=== PATIENT | male | born 1980 ===

== ENCOUNTER 2018-12-16 17:38 | Emergency (ER) | payer OTHER, MEDICAID ==
[2018-12-16] MEDS ORDERED: TDAP Vaccine 0.5 mL Syr IM ONE (18:40)
--- NOTE | 2018-12-16 19:49 | ED PDOC ---
Arrival/HPI - General Chief Complaint: Finger,Hand,&Wrist Time Seen by Provider: 12/16/18 18:22 Historian: Patient - History of Present Illness Narrative History of Present Illness (Text): 12/16/18 19:46 38 year old male, with no past medical history, here for evaluation of left hand 2nd digit laceration that occurred this afternoon. Patient was at work and got his left hand caught in a piece of machinery causing a laceration to the tip of his left hand second digit. Bleeding was controlled at the time of injury with pressure. Patient presents to the emergency department because he is worried it'll be broken. Unknown last tetanus. Patient denies any laceration elsewhere, numbness, weakness, parasthesias, fevers, chills, headache, dizziness, chest pain, shortness of breath, dyspnea on exertion, cough, abdominal pain, nausea, vomiting, diarrhea, back pain, neck pain, or any other complaint. Time/Duration: 4-6 hours Symptom Onset: Gradual Symptom Course: Unchanged Activities at Onset: Light Context: Work Past Medical History - Provider Review Nursing Documentation Reviewed: Yes - Psychiatric Hx Psychophysiologic Disorder: No Hx Substance Use: No Family/Social History - Physician Review Nursing Documentation Reviewed: Yes Family/Social History: No Known Family HX Smoking Status: Never Smoked Hx Alcohol Use: No Hx Substance Use: No Allergies/Home Meds Allergies/Adverse Reactions: Allergies No Known Allergies Allergy (Verified 12/16/18 17:55) Review of Systems - Physician Review All systems were reviewed & negative as marked: Yes - Review of Systems Constitutional: Normal. absent: Fevers Eyes: Normal. absent: Vision Changes Respiratory: Normal. absent: SOB, Cough Cardiovascular: Normal. absent: Chest Pain Gastrointestinal: Normal. absent: Abdominal Pain, Diarrhea, Nausea, Vomiting Musculoskeletal: Arthralgias. absent: Back Pain, Neck Pain Skin: Laceration (left hand 2nd digit laceration) Neurological: Normal. absent: Headache, Dizziness Physical Exam Vital Signs Reviewed: Yes Vital Signs Temp Pulse Resp BP Pulse Ox 12/16/18 17:56 99.2 F 130 H 16 143/94 H 97 Temp Pulse Resp BP Pulse Ox 97.9 F 96 H 18 129/80 98 12/16/18 22:14 12/16/18 22:14 12/16/18 22:14 12/16/18 22:14 12/16/18 22:14 Temperature: Afebrile Blood Pressure: Hypertensive Pulse: Tachycardic Respiratory Rate: Normal Appearance: Positive for: Well-Appearing, Non-Toxic, Comfortable Pain Distress: None Mental Status: Positive for: Alert and Oriented X 3 - Systems Exam Head: Present: Atraumatic, Normocephalic Pupils: Present: PERRL Extroacular Muscles: Present: EOMI Conjunctiva: Present: Normal Mouth: Present: Moist Mucous Membranes Neck: Present: Normal Range of Motion. No: Paraspinal Tenderness Respiratory/Chest: Present: Clear to Auscultation, Good Air Exchange. No: Respiratory Distress, Accessory Muscle Use Cardiovascular: Present: Regular Rate and Rhythm, Normal S1, S2 Upper Extremity: Present: Normal ROM, NORMAL PULSES, Tenderness (over lac eration), Neurovascularly Intact, Capillary Refill < 2s, Deformity (tip of left hand 2nd digit partially avulsed), Other (1.5cm laceration proximal to the nail bed of the left hand 2nd digit. small amount of active bleeding. Skin intact to the volar aspect of the finger. ). No: Cyanosis, Edema, Temperature Abnormalties Lower Extremity: Present: Normal ROM Neurological: Present: GCS=15, CN II-XII Intact, Speech Normal, Motor Func Grossly Intact, Normal Sensory Function, Gait Normal Skin: Present: Warm, Dry, Normal Color. No: Rashes Psychiatric: Present: Alert, Oriented x 3, Normal Insight, Normal Concentration, Normal Affect, Normal Mood Medical Decision Making ED Course and Treatment: 12/16/18 19:51 Impression: 38 year old male, who presents to the emergency department complaining of laceration to the left 2nd digit. Plan: -- Tdap -- Tylenol -- Left hand X-ray -- Keflex -- Reassess and disposition Progress Notes: Xray shows comminuted fracture to distal phalanx of left hand 2nd digit. Spoke with Dr. Astudillo, who will come to ED to repair laceration. Procedure approved by nursing information systems coordinator Keisha and ED Director Dr. Reddy. Patient tolerated procedure well without complication. Hemostasis achieved. Splint applied, finger remained neurovascularly intact. Pt to followup in Dr. Astudillo's office on 12/22 for suture removal and followup. Dr. Astudillo recommends prescriptions for keflex, ibuprofen, and percocet. Wound care instructions discussed with patient. Full discussion translated by nurse to ensure patient understanding. Pt provided with proof of deposit by Dr. Astudillo. Pt verbalized understanding of discussion, will followup as instructed. Post-procedure XR shows improvement in bony alignment. Diagnostic testing results and plan of care discussed with patient. Strict instructions given regarding prescription use, importance of followup, and signs/symptoms to return to ER including fever, chills, signs of wound infection, or any other new/worsening symptoms. Pt verbalized understanding of discussion. Patient is A&Ox3, ambulating with steady gait, with vital signs stable for discharge. - RAD Interpretation Radiology Orders: 12/16/18 18:39 HAND LEFT 2ND DIGIT (FINGER) [RAD] Stat - Medication Orders Current Medication Orders: Discontinued Medications Acetaminophen (Tylenol 325mg Tab) 975 mg PO STAT STA Stop: 12/16/18 19:00 Last Admin: 12/16/18 19:36 Dose: 975 mg MAR Pain/Vitals Document 12/16/18 19:36 OCS (Rec: 12/16/18 19:45 OCS [id number]) Pain Reassessment Is This A Pain ReAssessment? No Sleep Is patient sleeping during reassessment? No Presence of Pain Presence of Pain Yes Pain Scale Used Protocol: PSCALES Pain Scale Used Numeric Location Left, Right or Bilateral Left Pain Location Body Site Finger Intensity 5 Scale Used Numeric Aggravating Factors ADL's Tetanus/Reduced Diphtheria/Acell Pertussis (Boostrix Vaccine Inj) 0.5 ml IM .ONCE ONE Stop: 12/16/18 18:41 Last Admin: 12/16/18 19:35 Dose: 0.5 ml Immunization Registry Document 12/16/18 19:35 OCS (Rec: 12/16/18 19:36 OCS [id number]) [facility]-Date provided 12/16/18 - Scribe Statement The provider has reviewed the documentation as recorded by the Raiza Elias Provider Scribe Attestation: All medical record entries made by the Scribe were at my direction and personally dictated by me. I have reviewed the chart and agree that the record accurately reflects my personal performance of the history, physical exam, medical decision making, and the department course for this patient. I have also personally directed, reviewed, and agree with the discharge instructions and disposition. Disposition/Present on Arrival - Present on Arrival Any Indicators Present on Arrival: No History of DVT/PE: No History of Uncontrolled Diabetes: No Urinary Catheter: No History of Decub. Ulcer: No History Surgical Site Infection Following: None - Disposition Have Diagnosis and Disposition been Completed?: Yes Diagnosis: Laceration Disposition: HOME/ ROUTINE Disposition Time: 21:45 Patient Plan: Discharge Condition: IMPROVED Discharge Instructions (ExitCare): Wound Care (DC), Laceration Repair With Stitches (DC) Print Language: AZERI Additional Instructions: Keflex cada 6 horas gage 14 brar Mantenga la herida limpia, seca y cubierta; No remojo gage 2 brar. Despus de 2 brar, puede mojar la herida y secarla, y volver a aplicar el apsito. Seguimiento con un especialista de la mano, el Dr. Astudillo en la oficina la prxima semana, nereyda 12/22 Seguimiento con mdico primario en 2 brar. Regrese a la aracely de emergencias con cualquier sntoma nuevo o que empeore Prescriptions: Cephalexin [Keflex] 500 mg PO QID 14 Days #56 capsule Ibuprofen [Motrin Tab] 600 mg PO Q8 PRN #30 tab PRN Reason: Pain, Moderate (4-7) oxyCODONE/Acetaminophen [Percocet 5/325 mg Tab] 1 tab PO Q6H PRN #10 tab PRN Reason: Pain, Severe (8-10) Referrals: [facility] [place] [Outside] - Follow up with primary Petros Astudillo MD [Staff Provider] - Follow up with primary Karla Dye MD [Medical Doctor] - Follow up with primary Forms: [employer] (Congolese), WORK NOTE
[2018-12-16 22:11] VITALS: BP 129/80; RESP 18; TEMP 97.9; O2SAT 98
[2018-12-16 22:13] VITALS: PULSE 96
--- NOTE | 2018-12-17 08:03 | RAD ---
Date of service: 12/16/2018 PROCEDURE: Left Index finger radiographs. HISTORY: laceration, injury, r/o fracture COMPARISON: None. TECHNIQUE: AP radiograph of the left hand, as well as spot oblique and lateral images of index finger were obtained. FINDINGS: LEFT INDEX FINGER: There is a comminuted fracture of the tuft of the distal phalanx left index finger also involving the midportion of the distal phalanx. Articular involvement is not favored but is not excluded at the distal interphalangeal joint. Punctate retained radiodense foreign body is not excluded versus fracture fragment in the lateral distal index finger soft tissues. The major tuft distal fracture fragment is displaced volar 100 percent of the diameter of the tuft. Remainder of the left hand (as seen on the AP view) grossly intact. JOINTS: No subluxation or dislocation of the interphalangeal joints is appreciated. SOFT TISSUES: Soft tissue irregularity may indicate laceration at the distal index finger and again, punctate radiodensity at lateral distal index finger soft tissues difficult to differentiate retained foreign body from bone. OTHER FINDINGS: None. IMPRESSION: Comminuted fracture of the tuft and at least midportion of the distal phalanx left index finger with volar displacement of the major fracture fragment. DIP involvement not favored but difficult to completely exclude. Soft tissue edema is appreciated. Difficult to completely exclude punctate retained radiodense foreign body. Please see discussion above.
--- NOTE | 2018-12-17 18:38 | RAD ---
Date of service: 12/16/2018 PROCEDURE: Left Index finger radiographs. HISTORY: post-procedure XR COMPARISON: December 16, 2018. Time of the most recent examination: 19:19. TECHNIQUE: AP radiograph of the left hand, as well as spot oblique and lateral images of index finger were obtained. FINDINGS: LEFT INDEX FINGER: Redemonstration of distal tuft fracture with comminution. Remainder of the left hand (as seen on the AP view) grossly intact. JOINTS: Normal. SOFT TISSUES: Soft tissue swelling attests to the acuity of the fracture. No visualized radiopaque foreign body. OTHER FINDINGS: None. IMPRESSION: No visible foreign body. Acute comminuted distal tuft fracture/soft tissue swelling again identified. Improved anatomic alignment of major fracture fragments detected.
--- NOTE | 2018-12-24 15:02 | CON ---
DATE: 12/16/2018 EMERGENCY ROOM CONSULTATION SURGEON: Petros Astudillo MD HISTORY OF PRESENT ILLNESS: This is a 38-year-old male, right-hand dominant, who crushed his left index finger in a ball and chain while at work. An x-ray done by the ER staff showed a left index finger open distal phalanx tuft fracture that was displaced. I was consulted by the emergency room and the hand surgeon for this open fracture, crush injury. So, I came and evaluated and treated the patient. I reviewed the x-ray, which showed a left index finger distal phalanx tuft fracture that was displaced and comminuted. PHYSICAL EXAMINATION: The patient's left index finger, he had an open fracture of the distal phalanx at the level of the nail bed. There was a crush injury. He had tenderness to the distal phalanx. He had an open distal phalanx fracture. He appeared to have avulsion of his germinal matrix as well as laceration of his fellow matrix and there was a 1.2 cm laceration in radial aspect of his left index finger tip. He appeared to have intact sensation on the volar aspect of the finger. He was able to flex and extend the digit grossly normally but it was limited secondary to pain and swelling. The other fingers do not appear to be involved. ASSESSMENT AND PLAN: I explained to the patient and his family through a bilingual secretary that I would repair his crush injury in the emergency room. I would remove the nail plate and evaluate the injury to the nail bed. If there is anything that I can repair in the emergency room, I would. It depends on where the location of the nail bed injury is. I warned him if it is at the germinal matrix, his nail may not grow properly and then, he may need to have future operations in the future to remove the nail bed entirely, his germinal matrix and perhaps the fingertip amputation if it becomes symptomatic. I told him the fracture would be reduced with manipulation in the ER and treat it with a splint for a few weeks and he needs to be on oral antibiotics for 2 weeks because of the open fracture. I told him that he cannot work for approximately one month and he may need to have therapy afterwards and that the paresthesia that he has to the tip of the finger from the crush injury may persist after several months. They understood this and wished to proceed and I will dictate a separate operative report. Petros Astudillo MD
--- NOTE | 2018-12-24 21:27 | OP ---
PROCEDURE DATE: 12/16/2018 PREOPERATIVE DIAGNOSES: As follows: 1. Crush injury to the left index finger. 2. Left index finger open distal phalanx fracture, tuft fracture. 3. Left index finger germinal matrix avulsion. 4. Left index finger sterile matrix nail bed laceration. 5. A 1.2-cm left index finger radial volar skin laceration. POSTOPERATIVE DIAGNOSES: 1. Crush injury to the left index finger. 2. Left index finger open distal phalanx fracture, tuft fracture. 3. Left index finger germinal matrix avulsion. 4. Left index finger sterile matrix nail bed laceration. 5. A 1.2-cm left index finger radial volar skin laceration. PROCEDURES PERFORMED: As follows: 1. Debridement of open fracture of left index finger, distal phalanx tuft and soft tissue. 2. Closed reduction with manipulation of left index finger distal phalanx tuft fracture. 3. Repair of left index finger nail bed laceration. 4. Complex repair of 1.2-cm left index finger laceration. SURGEON: Petros Astudillo MD ANESTHESIA: Regional: 1. Left index finger radial digital nerve block. 2. Left index finger ulnar digital nerve block. INDICATION FOR THE PROCEDURE: As follows: Please refer to my separately dictated ER consultation for history and physical. DESCRIPTION OF PROCEDURE: As follows: Marcaine 0.5% was used in the left index finger radial and ulnar digital nerve block. After allowing sufficient time for the anesthetic to take effect, the wound was thoroughly soaked in normal saline and diluted Betadine for several minutes. The area was prepped and draped in the usual clean and sterile manner. Tourniquet was placed at the base of the left index finger and was then removed at the end of the case. I started the operation by dissecting the nail plate off the nail bed. There was a very significant injury to the germinal matrix, which was 50% avulsed as well as separate laceration to the sterile matrix of the nail bed. The skin was irregular. There was a 1.2-cm laceration as well. I had to debride the irregular skin edges with scissor technique. I also debrided some of the soft tissue at the open fracture site. I then undermined the skin to get it closed. I closed the skin with 4-0 chromic in an interrupted fashion. After lining this up, I then repaired the sterile matrix nail bed laceration. After I debrided some soft tissue at the open fracture site with scissor technique, I repaired the sterile matrix nail bed laceration with 5-0 fast absorbing in interrupted fashion. I then placed the germinal matrix backward along and beneath the eponychial fold and tried to secure it to the periosteum with a 5-0 fast absorbing suture. After doing this, I then placed the nail plate, which was soaked in Betadine underneath the splint and secured this in place with 4-0 chromic suture as a nail plate splint. I also did a closed reduction with manipulation of the left index finger distal phalanx tuft fracture by manually reducing the fracture. After doing this, I placed Xeroform, dry sterile dressing, Geovanni wrap, and a finger splint and removed the tourniquet. The patient tolerated the procedure well and eventually discharged home on oral antibiotics for two weeks with the open fracture instructions to keep the splint on and dry at all times, keep the arm elevated, refrain from work and follow up with me, and it was reiterated that he had the very high risk of needing future operations for a symptomatic nail bed and perhaps needing to have the nail bed removed in the future, and he likely can have abnormal nail growth and can have some arthritis of that finger and stiffness and possible need for therapy. Petros Astudillo MD
== END 2018-12-16 22:14 | disposition home or self-care (01) ==
LOC: ED 17:38
DX: S67.191A Crushing injury of left index finger, initial encounter (principal); S61.311A Laceration without foreign body of left index finger with damage to nail, initial encounter; S62.631B Displaced fracture of distal phalanx of left index finger, initial encounter for open fracture; W23.0XXA Caught, crushed, jammed, or pinched between moving objects, initial encounter; Y99.0 Civilian activity done for income or pay; Z23 Encounter for immunization